=== PATIENT | female | born 1995 | race Two or more races ===

== ENCOUNTER 2025-03-20 20:33 | Emergency (ER) | payer MEDICAID, OTHER ==
[~2025-03-20] VITALS: Ht 165.1 cm; Wt 67.2 kg
[2025-03-20 20:35] VITALS: BP 108/62; PULSE 91; RESP 18; TEMP 98.5; O2SAT 97
--- NOTE | 2025-03-20 21:37 | ED.PDOC ---
History of Present Illness HPI Comments 4-year-old female with no significant past medical history presents to the ED with a chief complaint of abnormal vaginal bleeding. Patient notes that she is currently 16 weeks and notes that she passed blood clots with the associated vaginal spotting, dysuria and urinary frequency that started appr oximately 3:00 p.m. earlier this afternoon no alleviating factors at this time. Patient notes that she is , and denies any possible or previous injury. Patient denies any abdominal pain, nausea, vomiting, diarrhea, weakness, or any other associated symptoms, modifying at this time. PHYSICAL EXAM: General: Awake, alert and oriented. No acute distress. Skin: Skin in warm, dry and intact. Appropriate color for ethnicity. HEENT: The head is normocephalic and atraumatic. Conjunctivae are clear without exudates or hemorrhage. Sclera is non-icteric. EOM are intact. No signs of nystagmus. Eyelids are normal in appearance without swelling or lesions. Oral mucosa is pink and moist Neck: The neck is supple with normal range of motion. No JVD. Cardiac: Heart rate and rhythm are normal. No murmurs, gallops, or rubs are auscultated. Respiratory: No signs of respiratory distress. Lung sounds are clear in all lobes bilaterally without rales, rhonchi, or wheezes. Abdominal: Abdomen is soft, non-tender without distention, guarding or rigidity. Bowel sounds are present and normoactive in all four quadrants. Extremities: Upper and lower extremities are atraumatic in appearance without deformity or edema. Neurological: The patient is awake, alert and oriented to person, place, and time with normal speech. Speech is clear. There is no facial asymmetry. Psychiatric: Appropriate mood and affect. Good judgement and insight. REVIEW OF SYSTEMS: General: No fever, no chills, or fatigue HEENT: No sore throat, no earache, no congestion, no neck pain. Cardiac: No chest pain. No palpitations. Lungs: No shortness of breath, no cough. GI: No nausea, no vomiting, no diarrhea, no constipation, no abdominal pain : + dysuria, + frequency, - urgency. No hematuria. Musculoskeletal: No joint pain , no joint swelling, no extremity edema. Skin: No rash, no itching. 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 Was a procedure done?: No Differential Dx Considerations may include: Possible , ectopic , miscarriage, anemia X-Ray, Labs, Meds, VS Vital Signs Date Time Temp Pulse Resp B/P (MAP) Pulse Ox O2 Delivery O2 Flow Rate FiO2 03/20/25 20:35 98.5 91 18 108/62 97 98.5 Lab Test 03/20/25 21:10 Range/Units White Blood Count 12.1 H 4.4-10.8 10^3/uL Red Blood Count 4.16 4.0-5.20 10^6/uL Hemoglobin 13.9 12.2-16.2 g/dL Hematocrit 40.4 36.0-46.0 % Mean Corpuscular Volume 97.0 80.0-100.0 fL Mean Corpuscular Hemoglobin 33.4 H 28.0-32.0 pg Mean Corpuscular Hemoglobin Concent 34.4 32.0-36.0 g/dL Red Cell Distribution Width 13.0 11.8-14.3 % Platelet Count 178 140-450 10^3/uL Mean Platelet Volume 10.2 6.9-10.8 fL Neutrophils (%) (Auto) 71.4 37.0-80.0 % Lymphocytes (%) (Auto) 21.2 10.0-50.0 % Monocytes (%) (Auto) 6.8 0.0-12.0 % Eosinophils (%) (Auto) 0.4 0.0-7.0 % Basophils (%) (Auto) 0.2 0.0-2.0 % Neutrophils # (Auto) 8.6 1.6-8.6 10 ^3/uL Lymphocytes # (Auto) 2.6 0.4-5.4 10 ^3/uL Monocytes # (Auto) 0.8 0-1.3 10 ^3/uL Eosinophils # (Auto) 0 0-0.8 10 ^3/uL Basophils # (Auto) 0 0-0.2 10 ^3/uL Nucleated Red Blood Cells 0.0 % Urine Color Colorless Yellow Urine Clarity Turbid H Clear Urine pH 6.0 5.0-9.0 Urine Specific [place] 1.023 1.001-1.035 Urine Protein 1+ H Negative Urine Ketones Negative Negative Urine Blood 3+ H Negative /uL Urine Nitrite 2+ H Negative Urine Bilirubin Negative Negative Urine Urobilinogen Normal Negative mg/dL Urine Leukocyte Esterase 3+ Negative /uL Urine RBC 213 0 - 4 /hpf Urine WBC Clumps Present None Seen /hpf Urine Microscopic WBC 586 H 0-5 /HPF Urine Squamous Epithelial Cells Few <5 /hpf Urine Bacteria Many H None Seen /hpf Urine Glucose Normal Normal mg/dL Sodium Level 140 136-145 mmol/L Potassium Level 3.4 L 3.5-5.1 mmol/L Chloride Level 107 98-107 mmol/L Carbon Dioxide Level 21 20-31 mmol/L Anion Gap 12 5-15 Blood Urea Nitrogen 8 L 9-23 mg/dL Creatinine 0.61 0.550-1.02 mg/dL Glomerular Filtration Rate Calc 125 >90 mL/min BUN/Creatinine Ratio 13.1 10.0-20.0 Serum Glucose 81 74-106 mg/dL Calcium Level 9.1 8.7-10.4 mg/dL Beta HCG, Quantitative 9574.1 H 1.5-4.2 mIU/mL Chlamydia trachomatis ([facility]) Pending Neisseria gonorrhoeae ([facility]) Pending [place] [address] Ph: [phone] DIAGNOSTIC IMAGING Diagnostic Imaging Report : [id number] Signed PATIENT: LEW MI ACCT: [id number] UNIT: [id number] : 1995 LOC: ER ROOM / BED: / AGE / SEX: 29 / F ADM STATUS: REG ER SERVICE [id number] ORDERING PHYSICIAN: LEOBARDO DRAPER MD PROCEDURE(s): OB4US - OB ULTRASOUND COMP LESS 14WKS REASON: Vaginal Bleeding during ORDER NUMBER(s): [id number], ACCESSION NUMBER(s): [id number] 2ND TRIMESTER LIMITED OBSTETRICAL ULTRASOUND HISTORY: Vaginal Bleeding during . . Request estimated weight only. COMPARISON: None TECHNIQUE: Transabdominal only imaging of the pelvis. FINDINGS: BIOMETRY: Sonographic age: 17 weeks 1 days, corresponding to an MARCIA of 08/27/25 HEART RATE: 164 bpm ESTIMATED WEIGHT calculated by Hadlock: 177.16 g BPD: 17 cm. 17 weeks + 5 days OFD: 4.72 cm. HC: 13.81 cm. 17 weeks + 1 days AC: 11.64 cm. 17 weeks + 3 days FL: 2.17 cm. 16 weeks + 3 days PROPORTIONALITY RATIOS: CI: 81.12 HC/AC: 1.19 FL/BPD: 56.55 FL/AC: 18.60 FL/HC: 15.68 UTERUS: Gravid. The cervix measures approximately 3.6 cm in length. There is no evidence of funneling of the internal os. The fetus is in breech position. The placenta is primarily fundal and anterior in position. the amount of amniotic fluid is visually within normal limits. IMPRESSION: Single live intrauterine gestation. Estimated weight 177.16 g. ATED BY: JUAN SHAIKH MD DICTATED DATE/TIME: 03/20/252206 SIGNED BY: JUAN SHAIKH MD SIGNED DATE/TIME: 03/20/252206 Time of 1ST Reevaluation: 22:03 Reevaluation 1ST: Unchanged Patient Education/Counseling: Diagnosis, Treatment, Need For Follow Up Family Education/Counseling: No Family Present SEPSIS Sepsis Screen Date sepsis recognized/suspect: Mar 20, 2025 Time Sepsis recognized/suspect: 2037 Recent Procedure: No On Antibiotic Therapy: No Respiratory Rate >20: No Heart Rate >90: No Temp<36 C (96.8 F) or >38.3 C: No SBP <90 or MAP <65 mmHG: No New Acute Mental Status Change: No Is the patient on CPAP, BIPAP,: No Physician Orders Chlamydia/Gc Amplification (03/20/25 21:04) Ob Ultrasound Comp Less 14wks (03/20/25 21:04) Potassium Er Tablet (Klor-Con Tablet) (03/21/25 00:00) Vital Signs Date Time Temp Pulse Resp B/P (MAP) Pulse Ox O2 Delivery O2 Flow Rate FiO2 03/20/25 20:35 98.5 91 18 108/62 97 98.5 Laboratory Tests Test 03/20/25 21:10 White Blood Count 12.1 10^3/uL (4.4-10.8) H Departure 1 Departure Time of Disposition: 23:54 Impression: Primary Impression: Urinary tract infection Disposition: HOME / SELF CARE / HOMELESS Condition: Stable Additional Instructions: ED DISCHARGE INSTRUCTIONS Instructions: Please read all instructions provided in this packet carefully. Although you have been discharged from the Emergency Department, this does not mean that you have a "clean bill of health". No definitive diagnosis for your symptoms has been made today. It is possible that you are in the process of developing a serious illness. This is why you must return to the ED without fail if any new or worsening symptoms (especially if your symptoms include chest pain, trouble breathing, abdominal pain, fever, headache, confusion, trouble seeing, or trouble walking) It is also very important that you see a primary care provider (PCP) within the next 1-3 days to follow up. If you are unable to get an appointment, return to the ED for re-evaluation. A copy of your ultrasound report is included below Urinary Tract Infection in : Care Instructions Overview A urinary tract infection (UTI) is an infection caused by bacteria. It can happen anywhere in the urinary tract. A UTI can happen in the: Most UTIs are infections in the bladder. They often cause pain or burning when you urinate. An untreated UTI could lead to more serious problems such as labor. Most UTIs can be cured with antibiotics. Your doctor will prescribe an antibiotic that is safe during . Be sure to finish your medicine so that the infection doesn't spread. Follow-up care is a carrasco part of your treatment and safety. Be sure to make and go to all appointments, and call your doctor if you are having problems. It's also a good idea to know your test results and keep a list of the medicines you take. How can you care for yourself at home? Take your antibiotics as directed. Do not stop taking them just because you feel better. You need to take the full course of antibiotics. Drink extra water and other fluids for the next day or two. This will help wash out the bacteria causing the infection. If you have kidney, heart, or liver disease and have to limit fluids, talk with your doctor before you increase the amount of fluids you drink. Urinate often. Try to empty your bladder each time. Preventing UTIs Drink plenty of fluids. This helps you urinate often, which clears bacteria from your system. If you have kidney, heart, or liver disease and have to limit fluids, talk with your doctor before you increase the amount of fluids you drink. Urinate when you first have the urge. Urinate right after you have sex. When going to the bathroom, wipe from front to back to keep bacteria from entering the vagina or urethra. When should you call for help? Call your doctor now or seek immediate medical care if: You have new symptoms of a urinary tract infection or your symptoms get worse. These may include: Pain or burning when you urinate. A frequent need to urinate without being able to pass much urine. Pain in the flank, which is just below the rib cage and above the waist on either side of the back. Blood in your urine. A fever. Nausea and vomiting. Watch closely for changes in your health, and be sure to contact your doctor if: You do not get better as expected. Credits for Urinary Tract Infection in : Care Instructions Current as of: February 20, 2025 Author: [employer] Staff Clinical Review Board All [employer] education is reviewed by a team that includes physicians, nurses, advanced practitioners, registered dieticians, and other healthcare professionals. [place] [address] Ph: [phone] DIAGNOSTIC IMAGING Diagnostic Imaging Report : [id number] Signed PATIENT: LEW MI ACCT: [id number] UNIT: [id number] : 1995 LOC: ER ROOM / BED: / AGE / SEX: 29 / F ADM STATUS: REG ER SERVICE 03 ORDERING PHYSICIAN: LEOBARDO DRAPER MD PROCEDURE(s): OB4US - OB ULTRASOUND COMP LESS 14WKS REASON: Vaginal Bleeding during ORDER NUMBER(s): [id number], ACCESSION NUMBER(s): [id number] 2ND TRIMESTER LIMITED OBSTETRICAL ULTRASOUND HISTORY: Vaginal Bleeding during . . Request estimated weight only. COMPARISON: None TECHNIQUE: Transabdominal only imaging of the pelvis. FINDINGS: BIOMETRY: Sonographic age: 17 weeks 1 days, corresponding to an MARCIA of 08/27/25 HEART RATE: 164 bpm ESTIMATED WEIGHT calculated by Hadlock: 177.16 g BPD: 17 cm. 17 weeks + 5 days OFD: 4.72 cm. HC: 13.81 cm. 17 weeks + 1 days AC: 11.64 cm. 17 weeks + 3 days FL: 2.17 cm. 16 weeks + 3 days PROPORTIONALITY RATIOS: CI: 81.12 HC/AC: 1.19 FL/BPD: 56.55 FL/AC: 18.60 FL/HC: 15.68 UTERUS: Gravid. The cervix measures approximately 3.6 cm in length. There is no evidence of funneling of the internal os. The fetus is in breech position. The placenta is primarily fundal and anterior in position. the amount of amniotic fluid is visually within normal limits. IMPRESSION: Single live intrauterine gestation. Estimated weight 177.16 g. ATED BY: JUAN SHAIKH MD DICTATED DATE/TIME: 03/20/252206 SIGNED BY: JUAN SHAIKH MD SIGNED DATE/TIME: 03/20/252206 e-Prescriptions Cephalexin Monohydrate (Cephalexin) 500 Mg Cap 1 CAP PO BID for 10 Days, #20 CAP Prov: LEOBARDO DRAPER MD 03/21/25 Comments MDM: Patient well-appearing, nontoxic. Advised prompt follow-up with PCP, return to the ED with any new, worsening or concerning symptoms. I reviewed the following notes from the pt's past medical encounters: N/A The following tests were ordered, and results were reviewed by me: (See diagnostic results section) The following test were independently interpreted by me: N/A Additional information was gathered from interviewing the following independent historians: N/A I reviewed and agreed with the following test results read by other providers: N/A I discussed treatments and results with patient Decision regarding hospitalization or escalation of hospital level of care: Risks and benefits of admission for further treatment of patient's condition was considered however due to patient's stable condition patient will be discharged to follow up closely or return to care for worsening of condition or inability to follow up. Critical Care Note Critical Care Time?: No Stability Stability form required: No Heart Score Heart Score: Heart Score Response (Comments) Value History N/A 0 EKG N/A 0 Age N/A 0 Risk Factors N/A 0 Troponin N/A 0 Total 0 I personally scribed for LEOBARDO DRAPER MD ([email or web address]) on 03/20/25 at 21:37. Electronically submitted by Miguel A Cornelius ([email or web address]). LEOBARDO DRAPER MD Mar 20, 2025 21:37
[2025-03-20 21:45] LABS: Hematocrit 40.4 % (36.0-46.0); Hemoglobin 13.9 g/dL (12.2-16.2); Mean Corpuscular Hemoglobin 33.4 pg (28.0-32.0); Mean Corpuscular Volume 97.0 fL (80.0-100.0); Nucleated Red Blood Cells % 0.0 %
[2025-03-20 21:58] LABS: Sodium 140 mmol/L (136-145)
[2025-03-20 21:59] LABS: Anion Gap 12 (5-15); Carbon Dioxide 21 mmol/L (20-31)
[2025-03-20 22:00] LABS: Calcium 9.1 mg/dL (8.7-10.4)
[2025-03-20 22:04] LABS: BUN/Creatinine Ratio 13.1 (10.0-20.0); Glucose 81 mg/dL (74-106)
[2025-03-20 22:06] LABS: Blood Urea Nitrogen 8 mg/dL (9-23); Chloride 107 mmol/L (98-107); Potassium 3.4 mmol/L (3.5-5.1)
--- NOTE | 2025-03-20 22:10 | DVH ---
2ND TRIMESTER LIMITED OBSTETRICAL ULTRASOUND HISTORY: Vaginal Bleeding during . . Request estimated weight only. COMPARISON: None TECHNIQUE: Transabdominal only imaging of the pelvis. FINDINGS: BIOMETRY: Sonographic age: 17 weeks 1 days, corresponding to an MARCIA of 08/27/25 HEART RATE: 164 bpm ESTIMATED WEIGHT calculated by Hadlock: 177.16 g BPD: 17 cm. 17 weeks + 5 days OFD: 4.72 cm. HC: 13.81 cm. 17 weeks + 1 days AC: 11.64 cm. 17 weeks + 3 days FL: 2.17 cm. 16 weeks + 3 days PROPORTIONALITY RATIOS: CI: 81.12 HC/AC: 1.19 FL/BPD: 56.55 FL/AC: 18.60 FL/HC: 15.68 UTERUS: Gravid. The cervix measures approximately 3.6 cm in length. There is no evidence of funnelin g of the internal os. The fetus is in breech position. The placenta is primarily fundal and anterior in position. the amount of amniotic fluid is visually within normal limits. IMPRESSION: Single live intrauterine gestation. Estimated weight 177.16 g.
[2025-03-20 23:22] LABS: Urine Protein, UAD 1+ (Negative); Urine WBC Clumps PRESENT /hpf (None Seen)
[2025-03-21] MEDS ORDERED: CEPH500C PO (00:06)
[2025-03-21] MEDS: POTASSIUM CHL 20 Meq TABLET PO ONE (02:58)
[2025-03-23 02:07] LABS: Chlamydia Trachomatis, NAA Negative (Negative); Neisseria gonorrhoeae, NAA Negative (Negative)
== END 2025-03-21 02:56 | disposition home or self-care (01) ==
LOC: ER 20:33
DX: O23.42 Unspecified infection of urinary tract in pregnancy, second trimester (principal); O20.0 Threatened abortion; N39.0 Urinary tract infection, site not specified; Z3A.16 16 weeks gestation of pregnancy; Z88.6 Allergy status to analgesic agent
CPT/HCPCS: 36415; 76801; 80048; 81001; 84702; 85025; 86850; 86900; 86901